=== PATIENT | female | born 1955 | race American Indian/Alaskan Native ===

== ENCOUNTER 2017-02-03 09:18 | Day surgery (SDC) | payer BC ==
--- NOTE | 2017-02-03 09:39 | Discharge Summary ---
Short Stay Discharge Plan Activity: no restrictions Weight Bearing Status: Full Weight Bearing Diet: regular Wound: remove dressing (72hrs and may shower) Additional Instructions: SAUMYA Care Follow up with: PRIMARY CARE, [Primary Care Provider] - 6 Weeks WORK,OTTO Ulloa JR, MD [Staff Physician] - 7 Days
--- NOTE | 2017-02-03 09:40 | Short Stay Summary ---
Short Stay Documentation Date of service: 02/03/17 - Allergies and Medications Current Medications: Allergies No Known Allergies Allergy (Unverified 01/23/17 15:34) Home Medications Medication Instructions Recorded Confirmed Last Taken Type ALBUTEROL Inhaler [Proair] 2 puff IH QID PRN 01/23/17 01/23/17 Unknown History Cephalexin [Keflex] 500 mg PO Q6HR 01/23/17 01/23/17 Unknown History Cyclobenzaprine [Flexeril] 10 mg PO TID PRN 01/23/17 01/23/17 Unknown History HYDROcodone/APAP 7.5-325 [[place] 2 each PO Q4-6H PRN 01/23/17 01/23/17 Unknown History 7.5/325] Ondansetron [Zofran TAB] 8 mg PO Q6HR PRN 01/23/17 01/23/17 Unknown History - Brief post op/procedure progress note Date of procedure: 02/03/17 Pre-op diagnosis: Macromastia Post-op diagnosis: same Procedure: Bilateral Breast Reduction Anesthesia: GETA Surgeon: OTTO HAN JR Estimated blood loss: 50-100ml Specimen disposition: to lab Condition: stable - Disposition Condition at discharge: Good Disposition: DC-01 TO HOME OR SELFCARE Short Stay Discharge Plan Additional Instructions: Care Follow up with: OTTO HAN JR, MD [Staff Physician] - 7 Days PRIMARY CARE, [Primary Care Provider] - 6 Weeks
[2017-02-03] MEDS ORDERED: NACL BACTERIOSTATIC INFILTRATI ONE (09:49)
[2017-02-03 10:16] LABS: Hematocrit 32.3 % (30.3-42.9); Hemoglobin 10.4 gm/dl (10.1-14.3)
[2017-02-03] MEDS ORDERED: ANCEF/STERILE WATER 2 GM/20 ML IV NR (10:30)
--- NOTE | 2017-02-03 10:43 | Anesthesia Day of Surgery ---
Anesthesia Day of Surgery - Day of Surgery Patient Examined: Yes Patient H&P Reviewed: Yes Patient is NPO: Yes
--- NOTE | 2017-02-03 10:43 | Anesthesia Consultation ---
Anesthesia Consult and Med Hx Date of service: 02/03/17 - Airway Anesthetic Teeth Evaluation: Good ROM Head & Neck: Adequate Mental/Hyoid Distance: Adequate Mallampati Class: Class II Intubation Access Assessment: Probably Good - Pulmonary Exam CTA: Yes - Cardiac Exam Cardiac Exam: RRR - Pre-Operative Health Status ASA Pre-Surgery Classification: ASA2 Proposed Anesthetic Plan: General - Pulmonary Hx Smoking: No Hx Asthma: Yes Hx Sleep Apnea: No - Cardiovascular System Hx Hypertension: No - Central Nervous System Hx Psychiatric Problems: No - Other Systems Hx Cancer: No
[2017-02-03] MEDS ORDERED: VERSED IV NR (11:00)
[2017-02-03] MEDS ORDERED: LACTATED RINGERS 1,000 ML IV SCH (11:00)
[2017-02-03] MEDS ORDERED: PEPCID PO NR (11:00)
[2017-02-03] MEDS ORDERED: TRANSDERM-SCOP TD NR (11:00)
[2017-02-03] MEDS ORDERED: NEO SYNEPHRINE/NS Syringe(OR USE) IV ONE (13:00)
[2017-02-03] MEDS ORDERED: ROBINUL ONE ×2 (13:01)
[2017-02-03] MEDS ORDERED: XYLOCAINE MPF 2% ONE (13:01)
[2017-02-03] MEDS ORDERED: ZOFRAN ONE (13:01)
[2017-02-03] MEDS ORDERED: DECADRON ONE (13:01)
[2017-02-03] MEDS ORDERED: NEOSTIGMINE ONE (13:01)
[2017-02-03] MEDS ORDERED: ZEMURON IV ONE (13:01)
[2017-02-03] MEDS ORDERED: SUBLIMAZE ONE ×2 (13:02→15:33)
[2017-02-03] MEDS ORDERED: DIPRIVAN 10 MG/ML IV ONE ×2 (13:02→15:33)
[2017-02-03] MEDS ORDERED: DILAUDID ONE (13:02)
[2017-02-03] MEDS ORDERED: LACTATED RINGERS 1,000 ML ONE (15:13)
[2017-02-03] MEDS ORDERED: WATER FOR IRRIG STERILE IR ONE (15:22)
[2017-02-03] MEDS ORDERED: APRESOLINE ONE (15:40)
[2017-02-03] MEDS: DILAUDID IV PRN ×2 (18:25→18:40)
[2017-02-03 20:56] VITALS: BP 152/65
--- NOTE | 2017-02-24 07:51 | Operative Report ---
PREOPERATIVE DIAGNOSIS: Macromastia. POSTOPERATIVE DIAGNOSIS: Macromastia. PROCEDURE: Bilateral reduction mammoplasty. SURGEON: Marino Figueroa MD DENTAL EQUIPMENT REPAIRER: Colby Payton CSA FINDINGS: 640 gm removed from the right breast, 700 gm removed from the left breast. DESCRIPTION OF PROCEDURE: The patient was brought to the operating room, placed on table in supine position. Following administration of general anesthesia, bilateral breasts were prepped with Betadine solution and draped in the usual sterile manner. A #10 blade scalpel was used to make a circumareolar skin incision followed by de-epithelization of the inferior dermal pedicle. Modified gilman pattern skin markings were incised with scalpel, deepened through subcutaneous fat and breast tissue using an electrocautery. Skin flaps were raised in standard manner as was fashioning of an inferior central mound pedicle. Breasts tissue was resected and sent to pathology as specimen. Hemostasis controlled using the electrocautery. Closure was performed over 10-mm Francois drain using interrupted and running subcuticular 2-0 Monocryl sutures. Mastisol, Steri-Strips, and sterile dressings applied. The patient tolerated the procedure well and returned to recovery room in stable condition. JOB# [id number] FTW/NTS
== END 2017-02-03 09:19 | disposition home or self-care (01) ==
LOC: OR 09:18
PROVIDERS: ATTEND Plastic Surgery
DX: N62 Hypertrophy of breast (principal); N64.1 Fat necrosis of breast; J45.909 Unspecified asthma, uncomplicated; Z79.899 Other long term (current) drug therapy; Z88.8 Allergy status to other drugs, medicaments and biological substances; Z98.84 Bariatric surgery status; Z91.041 Radiographic dye allergy status
CPT/HCPCS: 19318; 36415; 85014; 85018; 88305; J0360; J0690; J1100; J1170; J2250; J2370; J2405; J2704; J2710; J3010; J7120; 88307